=== PATIENT | male | born 1950 | race Caucasian/White ===

== ENCOUNTER → 2016-10-26 | Outpatient (CLI) | payer BC, MEDICARE | LOC: US 13:54 | DX: N18.3 Chronic kidney disease, stage 3 (moderate) (principal); N28.89 Other specified disorders of kidney and ureter ==

== ENCOUNTER → 2020-10-31 | Outpatient (CLI) | payer MEDICARE, BC | LOC: HEART 5 13:32 | DX: R00.1 Bradycardia, unspecified (principal); I51.7 Cardiomegaly | CPT/HCPCS: 93306 ==

== ENCOUNTER → 2020-11-22 | Outpatient (CLI) | payer MEDICARE | LOC: MRI 11-06 09:30 | DX: I10 Essential (primary) hypertension (principal) | CPT/HCPCS: C8902 ==

== ENCOUNTER → 2021-04-30 | Outpatient (CLI) | payer MEDICARE, BC | LOC: EXRD 12:57 | DX: I70.1 Atherosclerosis of renal artery (principal); N28.1 Cyst of kidney, acquired | CPT/HCPCS: 76775 ==

== ENCOUNTER → 2021-08-13 | Outpatient (CLI) | payer MEDICARE, BC | LOC: KOH-I 13:42 | DX: M25.511 Pain in right shoulder (principal) | CPT/HCPCS: 73030 ==

== ENCOUNTER → 2022-02-27 | Outpatient (CLI) | payer MEDICARE, BC | LOC: US 06:49 | DX: I70.1 Atherosclerosis of renal artery (principal) | CPT/HCPCS: 93975 ==